=== PATIENT | male | born 1930 | race Caucasian/White ===

== ENCOUNTER 2017-02-13 10:40 | Emergency (ER) | payer MEDICARE, BC ==
--- NOTE | 2017-02-13 12:02 | EDM.PDOC ---
ED HPI GENERAL MEDICAL PROBLEM - General Chief Complaint: General Stated Complaint: MED[facility] Time Seen by Provider: 02/13/17 11:00 Source of Information: Reports: Patient, EMS History Limitations: Reports: No Limitations - History of Present Illness INITIAL COMMENTS - FREE TEXT/NARRATIVE: 86-year-old male who still lives independently has had several days of weakness , shortness of breath especially with activity, and patient feels he's had several dark stools over the past few days. He's also had 2 episodes of fairly mild but persistent chest pain lasting under one half hour. He has a history of coronary artery disease and has had a total of 5 coronary stents placed but none in the last 5-6 years. He does have a pacemaker, and a recent pacemaker check revealed some "problems" that required him to start Coumadin within the last 2 weeks. His INR was checked yesterday and was over 3, so some Coumadin adjustments were made and he was scheduled to have it rechecked next Thursday. This morning however he was so weak he called the ambulance. He also had another episode of chest pain which had resolved by the time the ambulance arrived and has not recurred. He is in a paced rhythm. Onset: Gradual (Over the past several days) Worsens with: Reports: Other (Any ambulation or activity causes increased shortness of breath and weakness), Movement Associated Symptoms: Reports: Other (Possibility of dark stools over the past 2 days). Denies: Nausea/Vomiting - Related Data Allergies Allergy/AdvReac Type Severity Reaction Status Date / Time celecoxib [From Celebrex] Allergy Rash Verified 11/10/16 11:19 Home Meds: Home Meds Acetaminophen [Tylenol] 650 mg PO Q6H PRN 08/17/13 [History] Aspirin [Halfprin] 81 mg PO DAILY 08/17/13 [History] Cyanocobalamin (Vitamin B-12) [Vitamin B-12] 1,000 mcg PO Q48H 08/17/13 [History ] Furosemide [Lasix] 10 mg PO DAILY 08/17/13 [History] Lisinopril [Zestril] 10 mg PO DAILY 08/17/13 [History] Nitroglycerin [Nitrostat] 0.4 mg SL ASDIRECTED PRN 08/17/13 [History] Pramipexole [Mirapex] 0.5 mg PO BEDTIME 08/17/13 [History] Propranolol [Inderal] 20 mg PO BID 08/17/13 [History] atorvaSTATin Calcium [Atorvastatin Calcium] 10 mg PO BEDTIME 11/06/13 [History] Benzonatate [Tessalon Perle] 200 mg PO TID PRN 07/06/16 [History] Cyclobenzaprine [Flexeril] 5 mg PO TID PRN 07/06/16 [History] Melatonin 3 mg PO BEDTIME 07/06/16 [History] Gabapentin [Neurontin] 1 cap PO BID 02/13/17 [History] Tamsulosin [Flomax] 1 tab PO DAILY 02/13/17 [History] Tiotropium [Spiriva HandiHaler] 1 dose INH DAILY 02/13/17 [History] Warfarin [Coumadin] 1 tab PO ASDIRECTED 02/13/17 [History] Past Medical History HEENT History: Reports: Hard of Hearing Cardiovascular History: Reports: CAD, High Cholesterol, Hypertension, Pacemaker Respiratory History: Reports: COPD Other Respiratory History: O2 dependant Gastrointestinal History: Reports: Chronic Constipation, Chronic Diarrhea Other Gastrointestinal History: recent weight loss Musculoskeletal History: Reports: Back Pain, Chronic Neurological History: Reports: Neuropathy, Peripheral - Infectious Disease History Infectious Disease History: Reports: Chicken Pox - Past Surgical History Cardiovascular Surgical History: Reports: Coronary Artery Stent Respiratory Surgical History: Reports: None Musculoskeletal Surgical History: Reports: Other (See Below) Social & Family History - Tobacco Use Smoking Status *Q: Never Smoker Years of Tobacco use: 30 Packs/Tins Daily: 1 Used Tobacco, but Quit: Yes Month Tobacco Last Used: 1989 Second Hand Smoke Exposure: No - Caffeine Use Caffeine Use: Reports: Coffee - Alcohol Use Days Per Week of Alcohol Use: 6 Number of Drinks Per Day: 2 Total Drinks Per Week: 12 - Recreational Drug Use Recreational Drug Use: No - Living Situation & Occupation Living situation: Reports: , with Spouse ED ROS GENERAL - Review of Systems Review Of Systems: See Below Constitutional: Reports: Malaise, Weakness, Fatigue. Denies: Fever, Chills HEENT: Reports: No Symptoms Respiratory: Reports: Shortness of Breath Cardiovascular: Reports: Chest Pain (Several episodes lasting less than 20 minutes, pressure ). Denies: Palpitations GI/Abdominal: Reports: Black Stool. Denies: Abdominal Pain : Reports: No Symptoms Skin: Reports: Bruising Neurological: Reports: Weakness. Denies: Dizziness, Headache Psychiatric: Reports: No Symptoms ED EXAM, GENERAL - Physical Exam Exam: See Below Exam Limited By: No Limitations General Appearance: Alert, No Apparent Distress Eye Exam: Bilateral Eye: EOMI Throat/Mouth: Normal Inspection (Other than geographic tongue with some yellowish/greenish discoloration) Respiratory/Chest: Respiratory Distress (Mild, decreased breath sounds at the bases) Cardiovascular: Regular Rate, Rhythm GI/Abdominal: Soft, Non-Tender Rectal (Males) Exam: Normal Exam, Heme - Stool Extremities: Other (No significant peripheral edema) Neurological: Alert, Oriented Psychiatric: Normal Affect, Normal Mood Skin Exam: Warm, Dry, Other (A few scattered bruises, no significant pallor) Course - Vital Signs Last Recorded V/S: Last Vital Signs Temp 96.6 F 02/13/17 11:07 Pulse 130 H 02/13/17 13:08 Resp 14 02/13/17 13:08 BP 109/83 02/13/17 11:53 Pulse Ox 91 L 02/13/17 13:08 - Orders/Labs/Meds Labs: Laboratory Tests 02/13/17 02/13/17 Range/Units 11:12 11:12 WBC 9.2 (4.5-11.0) K/uL RBC 4.97 (4.30-5.90) M/uL Hgb 16.8 H (12.0-15.0) g/dL Hct 50.9 (40.0-54.0) % MCV 102 H (80-98) fL MCH 34 H (27-31) pg MCHC 33 (32-36) % Plt Count 139 L (150-400) K/uL Neut % (Auto) 66 (36-66) % Lymph % (Auto) 16 L (24-44) % [place] % (Auto) 9 H (2-6) % Eos % (Auto) 8 H (2-4) % Baso % (Auto) 1 (0-1) % Sodium 145 (140-148) mmol/L Potassium 3.9 (3.6-5.2) mmol/L Chloride 111 H (100-108) mmol/L Carbon Dioxide 23 (21-32) mmol/L Anion Gap 14.9 H (5.0-14.0) mmol/L BUN 21 H (7-18) mg/dL Creatinine 1.5 H (0.8-1.3) mg/dL Est Cr Clr Drug Dosing TNP Estimated GFR (MDRD) 44 L (>60) Glucose 93 (74-106) mg/dL Calcium 8.0 L (8.5-10.1) mg/dL Total Bilirubin 1.8 H (0.2-1.0) mg/dL AST 42 H D (15-37) U/L ALT 37 D (12-78) U/L Alkaline Phosphatase 130 H (46-116) U/L Troponin I 0.363 H* (0.000-0.056) ng/mL Total Protein 6.5 (6.4-8.2) g/dL Albumin 3.1 L (3.4-5.0) g/dL Globulin 3.4 (2.3-3.5) g/dL Albumin/Globulin Ratio 0.9 L (1.2-2.2) - Re-Assessments/Exams Free Text/Narrative Re-Assessment/Exam: 02/13/17 12:16 A stool guaiac was negative and his hemoglobin returned 16.8. Despite the elevated INR and the patient history dark stools, GI bleed is unlikely with a guaiac negative stool and stable hemoglobin. White count was normal. Troponin however returned at 0.363. This patient likely has had an MT sometime in the past 48 hours contributing to his weakness and dyspnea on exertion. He prefers to go to [facility] if possible, they were called and Dr. Meneses kindly accepted him for transfer. Departure - Departure Time of Disposition: 13:20 Disposition: DC/Tfer to Other Condition: fair Clinical Impression: MT, Myocardial infarction - Discharge Information Referrals: PCP,None [Primary Care Provider] - Forms: ED Department Discharge Care Plan Goals: Patient is to be transferred to [facility] for cardiology evaluation and care.
--- NOTE | 2017-02-13 13:02 | CR ---
Chest 1V Frontal HISTORY: dyspnea,hypoxia COMPARISON: 08/14/2016 FINDINGS: Portable chest, 1240 hours. Mild interstitial prominence appears similar to the prior exam. Mild cardiomegaly is unchanged. Pulm onary vasculature does not appear engorged. There is no acute infiltrate. Atherosclerotic aorta is n oted. Left-sided pacemaker and lead wires are stable. Remainder of the exam is unchanged. IMPRESSION: Mild cardiomegaly with probable interstitial prominence similar to exam of 08/14/2016. I cannot completely exclude borderline pulmonary congestive changes. No other acute abnormality or si gnificant interval change is identified.
[2017-02-13 14:47] VITALS: BP 109/83
== END 2017-02-13 13:20 | disposition other institution (70) ==
LOC: JP.ED 10:40
DX: I21.3 ST elevation (STEMI) myocardial infarction of unspecified site (principal); E78.00 Pure hypercholesterolemia, unspecified; I10 Essential (primary) hypertension; J44.9 Chronic obstructive pulmonary disease, unspecified; I25.10 Atherosclerotic heart disease of native coronary artery without angina pectoris; Z88.8 Allergy status to other drugs, medicaments and biological substances; Z79.82 Long term (current) use of aspirin; Z79.899 Other long term (current) drug therapy; Z79.01 Long term (current) use of anticoagulants; Z98.61 Coronary angioplasty status
CPT/HCPCS: 36415; 71010; 71010-26; 80053; 82272; 84484; 85025; 99285